=== PATIENT | male | born 1935 | race Caucasian/White ===

== ENCOUNTER → 2020-07-21 13:43 | Outpatient (CLI) | payer MEDICARE, SELFPAY ==
--- NOTE | ~2020-07-21 | XR_ITS ---
XR clavicle LT 07/21/2020 14:00 Indication: Left clavicle pain Procedure: 2 views left clavicle Comparison: No prior studies for comparison. Findings: No fracture or traumatic malalignment. There are mild degenerative changes of the acromiocl avicular joint. Normal mineralization. No significant soft tissue abnormality. Impression: 1: Mild degenerative change of the acromioclavicular joint. Reviewed, dictated and finalized at location A. TIVE TECHNOLOGIST Impression: 1: Mild degenerative change of the acromioclavicular joint.
== END ==
PROVIDERS: PCP Internal Medicine; Visit Provider Internal Medicine
DX: M79.89 Other specified soft tissue disorders (principal)
CPT/HCPCS: 73000

== ENCOUNTER → 2020-07-23 13:46 | Outpatient (CLI) | payer MEDICARE, SELFPAY ==
--- NOTE | ~2020-07-23 | US_ITS ---
EXAMINATION: US soft tissue head and neck EXAM DATE: 07/23/2020 14:06 INDICATION: Left supraclavicular lump for 3 months, no pain. TECHNIQUE: Multiple grayscale and Doppler images of the symptomatic left supraclavicular region were obtained (by a technologist who performed the scan) and subsequently reviewed. Correlation is made t o left clavicular x-ray 07/21/2020. FINDINGS: Scanning in the left supraclavicular area of concern demonstrates ill-defined heterogeneous region of soft tissue echogenicity, difficult to measure due to ill-defined margins. This appears to be along the musculature. No discrete enlarged lymph node identified. IMPRESSION: Nonspecific left supraclavicular ill-defined masslike region; could be malignancy, acute or chronic inflammatory process. Recommend CT neck with contrast for further characterization. Patient was instructed to follow-up these results with his ordering physician. Reviewed, dictated and finalized at location B. ER BOOTS AND SHOES REPAIRER IMPRESSION: Nonspecific left supraclavicular ill-defined masslike region; could be malignancy, acute or chronic inflammatory process. Recommend CT neck with c ontrast for further characterization. Patient was instructed to follow-up these results with his ordering physician.
== END ==
PROVIDERS: PCP Internal Medicine; Visit Provider Internal Medicine
DX: M79.89 Other specified soft tissue disorders (principal)
CPT/HCPCS: 76536

== ENCOUNTER 2020-08-04 07:46 | Outpatient (CLI) | payer MEDICARE, SELFPAY ==
--- NOTE | ~2020-08-04 | CT_ITS ---
EXAMINATION: CT soft tissue neck w con EXAM DATE: 08/04/2020 08:23 INDICATION: M79.89 - Other specified soft tissue disorders . Palpable mass left side upper chest lorri ed with BB, has noticed it for 2 months. TECHNIQUE: Spiral CT of the neck was performed following intravenous injection of 75 mL Omnipaque 350 . Axial, coronal and sagittal images were reviewed. The dose-length product (DLP) for this examinat ion was 576.60 mGy-cm. The exposure was tailored according to patient size (auto mA exposure control ), and iterative reconstruction (ASIR) was used as additional dose reduction technique. There is no prior study for comparison. FINDINGS: There is soft tissue density masslike region anterior to the left clavicle head, appears to be both superficial and deep to a fascial plane, involving the insertion of the left pectoralis at t he clavicular head. Region measures about 4 cm in diameter by 1.5 cm in thickness. It appears slightl y hyperdense to the other muscle in the region, and has ill-defined margins. Differential diagnosis i ncludes sarcoma, hematoma, melanoma. Histologic correlation indicated. There are left-sided internal jugular chain, submandibular, supraclavicular lymph nodes which are wit hin normal size limits, but some have somewhat rounded shape largest in the supraclavicular region me asuring 8 x 9 mm. Can't exclude early metastatic involvement. No superior mediastinal lymphadenopathy . There is right hilar lymph node measuring 1.9 x 1.1 cm, mildly enlarged. The thyroid gland is unremarkable. The submandibular and parotid glands are symmetric. The supe rior mediastinum is unremarkable. The airway is unremarkable. Parapharyngeal and pre-glottic fat planes are preserved. The opacified vasculature is patent. Patient has had bilateral ocular lens surgery. Visualized sinuses and mastoid air cells are well aerated. Mild to moderate emphysema. There is some dependent atelectasis. Scattered pleural plaques with calci fication, may indicate history of prior asbestos exposure. Patient may have mild asbestosis given the prominent interlobular septa. There are no osteoblastic or osteolytic lesions identified. There is mild to moderate cervical spondylosis. IMPRESSION: 1. Soft tissue mass anterior to left clavicular head, suspicious for malignancy or hematoma. Recomme nd histologic correlation. Would be amenable to ultrasound-guided biopsy. 2. Round morphology but normal sized left-sided supraclavicular, internal jugular, submandibular lym ph nodes. Mildly enlarged right hilar lymph node. Pending biopsy results, a PET/CT might be indicated . 3. Stigmata of prior asbestos exposure. Possible mild asbestosis. Reviewed, dictated and finalized at location A. UNITY ENGAGEMENT LEADER IMPRESSION: 1. Soft tissue mass anterior to left clavicular head, suspicious for malignanc y or hematoma. Recommend histologic correlation. Would be amenable to ultrasoun d-guided biopsy. 2. Round morphology but normal sized left-sided supraclavicular, internal jugu lar, submandibular lymph nodes. Mildly enlarged right hilar lymph node. Pending biopsy results, a PET/CT might be indicated. 3. Stigmata of prior asbestos exposure. Possible mild asbestosis.
[2020-08-04 08:14] LABS: Estimated Glomerular Filt Rate > 60
== END 2020-08-04 07:47 | disposition home or self-care (01) ==
PROVIDERS: PCP Internal Medicine; Visit Provider Internal Medicine
DX: R22.1 Localized swelling, mass and lump, neck (principal); R59.0 Localized enlarged lymph nodes; R91.8 Other nonspecific abnormal finding of lung field
CPT/HCPCS: 70491; Q9967

== ENCOUNTER 2020-08-13 09:11 | Outpatient (CLI) | payer MEDICARE, SELFPAY ==
--- NOTE | ~2020-08-13 | US_ITS ---
EXAMINATION: US biopsy st neck thorax DATE: 08/13/2020 09:53 INDICATION: Left supraclavicular mass. TECHNIQUE: The procedure including the risks, benefits, and alternatives was discussed with the patie nt. Risks discussed included bleeding and infection. The patient understood the risks and agreed to p roceed. The skin overlying the left supraclavicular region was prepped and draped in usual sterile fa shion. Anesthetic was administered with 1% lidocaine subcutaneously. An 18 gauge core biopsy needle was then used to obtain 3 core biopsy specimens under continuous sonographic guidance. The entry sit e was cleaned and dressed. There were no immediate complications. FINDINGS: Ultrasound images demonstrate the needle in an ill-defined mixed hypoechoic and hyperechoic mass in left supraclavicular region. IMPRESSION: 1. Ultrasound-guided core needle biopsy of a left supraclavicular mass. Reviewed, dictated and finalized at location A. ERTY FIELD INSPECTOR
== END 2020-08-13 09:12 | disposition home or self-care (01) ==
PROVIDERS: PCP Internal Medicine; Visit Provider Internal Medicine
DX: M79.89 Other specified soft tissue disorders (principal)
CPT/HCPCS: 20206; 76942; 88305; 88342; 88365

== ENCOUNTER 2022-10-13 18:19 | Emergency (ER) | payer MEDICARE, SELFPAY ==
--- NOTE | ~2022-10-13 | CT_ITS ---
EXAMINATION: CT abdomen pelvis w con DATE: 10/13/2022 21:24 INDICATION: periumbilical pain X4 days TECHNIQUE: Computed tomography (CT) of the abdomen and pelvis was performed with 100 mL Omnipaque-350 intravenous contrast. Automated exposure control and iterative reconstruction technique were employe d. The dose-length product was 694.33 mGy-cm. COMPARISON: 03/02/2017. FINDINGS: Lower thorax: Extensive pleural calcification and nodularity as can be seen with asbestos related ple ural disease. Bilateral lower lung bronchiectasis worse on the right. Basilar atelectasis/scarring. C oronary artery mitral and aortic calcifications. Liver: Subcentimeter right lobe hypodensity, likely small cyst or hemangioma. Biliary/Gallbladder: Gallbladder is normal. No bile duct dilation. Pancreas: No mass or duct dilation. Spleen: Normal. Adrenals:Small left adrenal myelolipoma. Kidneys: No mass, stone, or hydronephrosis. Mild bilateral perinephric stranding. Right upper pole hy podensities, too small to characterize but most likely represent cysts. GI tract: Mild distal esophageal and gastric wall edema. No small or large bowel dilation. Appendix n ot visualized. Diverticulosis without diverticulitis. Mesentery/Peritoneum: No ascites, mass, or free air. Retroperitoneum: No mass. Atherosclerotic abdominal aortic and/or arterial calcifications. Pelvis: Partially distended bladder with wall thickening and inflammatory change. Soft Tissues: Normal appearing umbilical region. Small fat-containing uncomplicated bilateral inguina l hernias. Bones: No acute osseous finding. IMPRESSION: Esophagitis/gastritis. Bladder wall thickening/inflammation may be secondary to outlet compromise or cystitis. Additional chronic and incidental findings detailed above. Reviewed, dictated and finalized at location K. IMPRESSION: Esophagitis/gastritis. Bladder wall thickening/inflammation may be secondary to outlet compromise or cystitis. Additional chronic and incidental findings deta iled above.
[2022-10-13 18:32] VITALS: BP 168/81; PULSE 91; RESP 16; TEMP 36.8; O2SAT 98
[2022-10-13 19:04] LABS: Basophils Absolute Auto 0.1 K/mm3 (0.0-0.1); Basophils Percent Auto 0.6 % (0.2-1.2); Eosinophils Absolute Auto 0.4 K/mm3 (0-0.3); Eosinophils Percent Auto 3.8 % (0-4.4); Hematocrit 42.6 % (42.0-52.0); Hemoglobin 14.1 g/dL (14.0-18.0); Immature Granulocyte Absolute 0.02 K/mm3 (0.00-0.031); Immature Granulocyte Percent A 0.2 % (0-0.5); Lymphocytes Percent Auto 29.7 % (18.3-44.2); Mean Corpuscular HGB Conc 33.1 g/dl (32-36); Mean Corpuscular Hemoglobin 30.1 pg (26-34); Monocytes Absolute Auto 0.7 K/mm3 (0.1-0.6); Monocytes Percent Auto 7.3 % (2.6-8.5); Neutrophils Absolute Auto 5.5 K/mm3 (1.3-6.7); Neutrophils Percent Auto 58.4 % (45.5-73.1); Platelet Count Result 294 k/mm3 (150-375); Red Blood Count 4.68 M/mm3 (4.6-6.20); Red Cell Distribution Width 14.6 % (11.5-14.5); White Blood Count 9.4 K/mm3 (4.5-10.0)
[2022-10-13 19:11] LABS: Alanine Aminotransferase 22 U/L (6-50); Albumin Level 4.7 g/dL (3.5-5.1); Alkaline Phosphatase 71 U/L (38-126); Anion Gap 8 mmol/L (8-16); Aspartate Amino Transferase 25 U/L (17-59); Bilirubin,Total 0.7 mg/dL (0.2-1.3); Blood Urea Nitrogen 22 mg/dL (9-20); Calcium 9.5 mg/dL (8.4-10.2); Carbon Dioxide 25 mmol/L (22-30); Chloride 100 mmol/L (98-107); Estimated CRCL calculation 57 ml/min; Estimated Glomerular Filt Rate > 60; Glucose 144 mg/dL (65-110); Lipase 63 U/L (23-300); Potassium 4.3 mmol/L (3.4-5.0); Sodium 133 mmol/L (137-145)
[2022-10-13 19:34] VITALS: O2SAT 97
[2022-10-13 19:35] VITALS: BP 166/94; PULSE 83; RESP 18; O2SAT 100
[2022-10-13 19:46] LABS: Appearance Urine Clear (Clear); Bilirubin Urine Negative (Negative); Blood Urine Negative (Negative); Color Urine Yellow (Yellow); Glucose Urine UA Negative (Negative); Ketones Urine Negative (Negative); Leukocyte Esterase Ur Negative LEU/UL (Negative); Nitrate Urine Negative (Negative); Protein Urine Negative (Negative); Specific Grav Ur 1.021 (1.001-1.035); Urobilinogen Urine 0.2 mg/dL (<2.0)
[2022-10-13 19:51] LABS: Add Urine Microscopic? NO
--- NOTE | 2022-10-13 20:57 | ED.ABDPAIN ---
HPI - Abdominal Pain General Chief Complaint: Abdominal Pain <RIDGE White Last Filed: 10/14/22 02:33> Stated Complaint: Pain in abd around belly button, started 4 days <RIDGE White Last Filed: 10/14/22 02:33> Time Seen by Provider: 10/13/22 19:31 <RIDGE White Last Filed: 10/14/22 02:33> Source: patient <RIDGE White Last Filed: 10/14/22 02:33> Mode of arrival: ambulatory <RIDGE White Last Filed: 10/14/22 02:33> Limitations: no limitations <RIDGE White Last Filed: 10/14/22 02:33> History of Present Illness HPI narrative: Patient is an 87 y/o male who presents the ED with report of periumbilical abdominal pain. Patient reports having pain for the last 4 days. He states the pain was somewhat intermittent at first, but has become more intense and constant. He has been taking Tylenol for the pain with minimal relief. Denies any other aggravating or alleviating factors of pain. He denies any nausea, vomiting, diarrhea, constipation, urinary symptoms, fever, recent cough or cold symptoms. His last bowel movement was yesterday. He states he typically has a bowel movement every other day. <RIDGE White Last Filed: 10/14/22 02:33> Related Data Allergies/Adverse Reactions: Allergies Allergy/AdvReac Type Severity Reaction Status Date / Time amoxicillin Allergy Unknown SWELLING Verified 10/13/22 18:20 ciprofloxacin Allergy Unknown Upset Verified 10/13/22 18:20 stomach <RIDGE White Last Filed: 10/14/22 02:33> Review of Systems Review of Systems: CONSTITUTIONAL: Denies fever, chills, or sweats. ENT: Denies rhinorrhea, congestion, sore throat. CARDIOVASCULAR: Denies chest pain. RESPIRATORY: Denies cough or dyspnea. GASTROINTESTINAL: See HPI. GENITOURINARY: Denies dysuria or hematuria. <Valorie Dominguez PA-C - Last Filed: 10/14/22 02:33> All systems reviewed & are unremarkable except as noted in HPI and below <Valorie Dominguez PA-C - Last Filed: 10/14/22 02:33> [facility] Past Medical History Medical History: Medical History Atherosclerotic heart disease of [place] coronary artery with angina pectoris Chronic kidney disease, stage III (moderate) SURESH (dyspnea on exertion) Dyslipidemia Essential hypertension H/O prostate cancer Hypothyroidism, unspecified Sleep disturbance Type 2 diabetes mellitus without complications <Valorie Dominguez PA-C - Last Filed: 10/14/22 02:33> Surgical History Surgical History: Surgical History H/O hernia repair History of appendectomy <Valorie Dominguez PA-C - Last Filed: 10/14/22 02:33> Family History Family History: Family History Mother Family history of transient ischemic attacks, Onset Age: 81 Family history of diabetes mellitus in first degree relative Patient's mother is Diabetes mellitus Cerebrovascular accident Sibling Family history of Parkinson's disease Patient's sister is in good health Father Family history of lung cancer Patient's father is Other Hypertension <Valorie Dominguez PA-C - Last Filed: 10/14/22 02:33> Social History Social History: Social History Smoking status: Never smoker Smoking end date: 08/01/1959 Alcohol intake: never <Valorie Dominguez PA-C - Last Filed: 10/14/22 02:33> Exam Narrative: GENERAL: Elderly, well-nourished, non-toxic, in no acute distress. HEAD: Normocephalic, atraumatic. NECK: Supple. No adenopathy, no masses. RESPIRATORY: Airway patent, respirations nonlabored. Clear to auscultation bilaterally, no rales, rhonchi, wheezing. CARDIOVASCULA
[2022-10-13] MEDS: SODIUM CHLORIDE 0.9% IV 1,000 ML 999 ML IV CONT (21:07)
[2022-10-13] MEDS: KETOROLAC 15 MG/ML VIAL (*BKC) IV PUSH (23:02)
[2022-10-13] MEDS: BELLADONNA ALK/PHENOB ELIX 10 ML, MAG HYDROX/ALUMINUM HYD/SIMETH 30 ML, LIDOCAINE HCL 2... PO (23:02)
--- NOTE | 2022-10-13 23:24 | PC.NURSE ---
Assumed care of this pt at this time. Report from WILL Morales.
[2022-10-13 23:25] VITALS: BP 158/86; PULSE 75; RESP 16; O2SAT 95
== END 2022-10-14 00:35 | disposition home or self-care (01) ==
PROVIDERS: Emergency Medicine; Emergency Provider Physician Assistant; PCP Internal Medicine
DX: K29.00 Acute gastritis without bleeding (principal); R10.33 Periumbilical pain; I25.10 Atherosclerotic heart disease of native coronary artery without angina pectoris; E11.22 Type 2 diabetes mellitus with diabetic chronic kidney disease; I12.9 Hypertensive chronic kidney disease with stage 1 through stage 4 chronic kidney disease, or unspecified chronic kidney disease; N18.30 Chronic kidney disease, stage 3 unspecified; E03.9 Hypothyroidism, unspecified; Z85.46 Personal history of malignant neoplasm of prostate
CPT/HCPCS: 36415; 74177; 80053; 81003; 83690; 85025; 96365; 96375; 99284; A9270; J0131; J1885; J7030; Q9967

== ENCOUNTER 2023-05-10 09:00 | Outpatient (CLI) | payer MEDICARE, SELFPAY ==
[2023-05-10 10:04] LABS: Alanine Aminotransferase 24 U/L (6-50); Albumin Level 4.4 g/dL (3.5-5.1); Alkaline Phosphatase 77 U/L (38-126); Anion Gap 10 mmol/L (8-16); Aspartate Amino Transferase 29 U/L (17-59); Bilirubin,Total 1.1 mg/dL (0.2-1.3); Blood Urea Nitrogen 20 mg/dL (9-20); Calcium 9.2 mg/dL (8.4-10.2); Carbon Dioxide 27 mmol/L (22-30); Chloride 101 mmol/L (98-107); Cholesterol 242 mg/dL (0-200); Estimated Glomerular Filt Rate > 60; Glucose 127 mg/dL (65-110); HDL Direct 34 mg/dL; Potassium 4.1 mmol/L (3.4-5.0); Sodium 138 mmol/L (137-145); Triglycerides 224 mg/dL (<150)
[2023-05-10 10:07] LABS: Hemoglobin A1C 6.2 % (<5.7)
[2023-05-10 10:15] LABS: LDL Cholesterol Direct 150 mg/dL
[2023-05-10 10:36] LABS: Microalbumin Urine Random 43.4 mg/L (0-16.7)
[2023-05-10 10:53] LABS: Creatinine Urine 367.2 mg/dL; MALB Creatinine Ratio 11.8 mg/g (0-30)
== END 2023-05-10 09:01 | disposition home or self-care (01) ==
LOC: ANHLAB 09:02
PROVIDERS: PCP Family Medicine; Visit Provider Nurse Practitioner Family
DX: E11.9 Type 2 diabetes mellitus without complications (principal); I12.9 Hypertensive chronic kidney disease with stage 1 through stage 4 chronic kidney disease, or unspecified chronic kidney disease; N18.2 Chronic kidney disease, stage 2 (mild); E03.9 Hypothyroidism, unspecified
CPT/HCPCS: 36415; 80053; 80061; 82043; 83036; 84443

== ENCOUNTER 2023-11-09 09:10 | Outpatient (CLI) | payer MEDICARE, SELFPAY ==
[2023-11-09 09:56] LABS: Alanine Aminotransferase 16 U/L (6-50); Albumin Level 4.7 g/dL (3.5-5.1); Alkaline Phosphatase 66 U/L (38-126); Anion Gap 10 mmol/L (4-12); Aspartate Amino Transferase 23 U/L (17-59); Bilirubin,Total 1.2 mg/dL (0.2-1.3); Blood Urea Nitrogen 26 mg/dL (9-20); Calcium 9.8 mg/dL (8.4-10.2); Carbon Dioxide 26 mmol/L (22-30); Chloride 104 mmol/L (98-107); Cholesterol 138 mg/dL (0-200); Estimated Glomerular Filt Rate > 60; Glucose 135 mg/dL (65-110); HDL Direct 38 mg/dL; Potassium 4.4 mmol/L (3.4-5.0); Sodium 140 mmol/L (137-145); Triglycerides 119 mg/dL (<150)
[2023-11-09 10:09] LABS: LDL Cholesterol Direct 77 mg/dL
[2023-11-09 10:29] LABS: Hemoglobin A1C 6.4 % (<5.7)
== END 2023-11-09 09:11 | disposition home or self-care (01) ==
LOC: ANHLAB 09:16
PROVIDERS: PCP Family Medicine; Visit Provider Nurse Practitioner
DX: E78.5 Hyperlipidemia, unspecified (principal); E11.9 Type 2 diabetes mellitus without complications; E03.9 Hypothyroidism, unspecified
CPT/HCPCS: 36415; 80053; 80061; 83036; 84443

== ENCOUNTER 2024-05-22 09:56 | Outpatient (CLI) | payer MEDICARE, SELFPAY ==
[2024-05-22 11:21] LABS: Alanine Aminotransferase 14 U/L (6-50); Albumin Level 4.5 g/dL (3.5-5.1); Alkaline Phosphatase 59 U/L (38-126); Anion Gap 10 mmol/L (4-12); Aspartate Amino Transferase 24 U/L (17-59); Bilirubin,Total 1.4 mg/dL (0.2-1.3); Blood Urea Nitrogen 26 mg/dL (9-20); Calcium 9.3 mg/dL (8.4-10.2); Carbon Dioxide 28 mmol/L (22-30); Chloride 101 mmol/L (98-107); Cholesterol 135 mg/dL (0-200); Estimated Glomerular Filt Rate > 60; Glucose 122 mg/dL (65-110); HDL Direct 42 mg/dL; Sodium 139 mmol/L (137-145); Triglycerides 122 mg/dL (<150)
[2024-05-22 11:25] LABS: LDL Cholesterol Direct 57 mg/dL
[2024-05-22 12:09] LABS: Hemoglobin A1C 6.6 % (<5.7)
[2024-05-22 12:55] LABS: Creatinine Urine 69.3 mg/dL
[2024-05-22 15:25] LABS: MALB Creatinine Ratio < 8.7 mg/g (0-30); Microalbumin Urine Random < 6.0 mg/L (0-16.7)
== END 2024-05-22 09:57 | disposition home or self-care (01) ==
LOC: ANHLAB 10:00
PROVIDERS: PCP Nurse Practitioner; Visit Provider Nurse Practitioner
DX: E11.9 Type 2 diabetes mellitus without complications (principal); E78.5 Hyperlipidemia, unspecified
CPT/HCPCS: 36415; 80053; 80061; 82043; 83036

== ENCOUNTER 2024-10-30 09:44 | Outpatient (CLI) | payer MEDICARE, SELFPAY ==
[2024-10-30 10:07] LABS: Add Urine Microscopic? NO; Appearance Urine Clear (Clear); Bilirubin Urine Negative (Negative); Blood Urine Negative (Negative); Color Urine Yellow (Yellow); Glucose Urine UA Negative (Negative); Ketones Urine Negative (Negative); Leukocyte Esterase Ur Negative LEU/UL (Negative); Nitrate Urine Negative (Negative); Protein Urine Negative (Negative); Specific Grav Ur 1.012 (1.001-1.035)
--- OUTSIDE RECORDS SUMMARY | 2024-10-30 10:14 | XMS_ITS | Clinical Summary ---
Author Organization [facility] Address [address] [place] [place] [address] Care Team Providers Care Draw Press Operator Name Role Phone Unavailable Primary Care Provider Unavailabl e Source Comments [facility],non-owned Affiliates and Associated Physician Practices is amultiple site organization consisting of ambulatory clinics and hospital sitesin [place], [place], [place] and [place]. This disclosure is being madepursuant to the Care Everywhere program and may not contain all information available regarding this patient. Last updated 18.[facility] Social History Tobacco Use Types Packs/Day Years Used Date Smoking Tobacco: Never Assessed Sex and Gender Information Value Date Recorded Sex Assigned at Not on file Gender Identity Not on file Sexual Orientation Not on file Plan of Treatment Health Maintenance Due Date Last Done Comments DTAP/TDAP/TD VACCINES (1 - Tdap) 1955 PNEUMOCOCCAL VACCINE 50+ (1 of 1 - PCV) 1986 ZOSTER VACCINE (1 of 2) 1986 Respiratory Syncytial Virus (RSV) Vaccine Pt: or over 60 yrs (1 - 1-dose 75+ series) 2011 COVID-19 VACCINE (2023-2 5 season) 2024 INFLUENZA VACCINE (#1) 2024 DEPRESSION SCREENING 08/01/2024 MEDICARE AWV CALENDAR YEAR 2024 HEPATITIS B VACCINE Aged Out No longe r eligible based on patient's age to complete this topic HIB VACCINE Aged Out No longer eligi ble based on patient's age to complete this topic HPV VACCINE Aged Out No longer eligi ble based on patient's age to complete this topic MENINGOCOCCAL (Group B) VACC INE SHARED DECISION-MAKING Aged Out No longer eligibl e based on patient's age to complete this topic MENINGOCOCCAL GROUPS A/C/Y/W VACCINE Aged Out No longer eligible b ased on patient's age to complete this topic
--- OUTSIDE RECORDS SUMMARY | 2024-10-30 10:14 | XMS_ITS | Continuity of Care Document ---
Author Organization [facility] Address [address] [place] [address] Phone Care Team Providers Care Payroll Associate Name Role Phone Dick Huerta MD Unavailable Unavailable Procedures Procedure Date Eye Exam, New Patient IOLMaster Advance Directives Directive Yes / No Effective Date File Name No Information Encounters Encounter Description Practice Location Reason(s) For Visit Diagnoses Date Provider Providers Copied on Encounter [facility], [address], [place], [place], [id number], [place] tel:[phone] [facility] No Information Bradley Jennings. [facility] [place], [place], [id number] , [place]. tel:[phone] Referring Provider: Junior Souza, [address], [place], [address]. tel:[phone] Family History Family Member Type Diagnosis Age At Onset No Information Payers Payer name Insurance type Covered republican ID Authoriza tion(s) [place] [id number] Social History Type Description Quantity Date Captured [...]
--- OUTSIDE RECORDS SUMMARY | 2024-10-30 10:14 | XMS_ITS | Encounter Summary ---
Author Organization [facility] Address [address] [facility] [address] Care Team Providers Care Adobe Flex Developer Name Role Phone Unavailable Primary Care Provider Unavailabl e Encounter Details Date Type Department Care Team (Late st Contact Info) Description 08/15/2020 Lab Requisition [facility] Care Pathology Lab [address] [place] [address] Francisco Valiente MD [address] [place] [id number] Illness, unspecified Social History Tobacco Use Types Packs/Day Years Used Date Smoking Tobacco: Never Assessed Sex and Gender Information Value Date Recorded Sex Assigned at Not on file Gender Identity Not on file Sexual Orientation Not on file documented as of this encounter Plan of Treatment Not on file documented as of this encounter Procedures Procedure Name Priority Date/Time Associated Diagnosis Comments PATHOLOGY TISSUE Routine 08/13/2020 9:53 AM ATMOSPHERIC PHYSICIST Illness, unspecified documented in this encounter Results * PATHOLOGY TISSUE (08/13/2020 9:53 AM ATMOSPHERIC PHYSICIST) Case Report Surgical Pathology Report Case: [id number] Authorizing Provider: Francisco Valiente MD Collected: 08/13/2020 09:53 AM Ordering Location: [facility] Received: 08/15/2020 08:09 AM Pathologist: Mainor Wilde MD Specimen: Lymph Node Biopsy 08/18/2020 2:06 PM ATMOSPHERIC PHYSICIST [facility] Final Diagnosis Left supraclavicular mass, ultrasound-guided core biopsy: - Scant fragments of fibrous tissue with polytypic plasma cells - See description 08/18/2020 2:06 PM ATMOSPHERIC PHYSICIST [facility] Microscopic Description and Comment H&E sections of the left supraclavicular mass biopsy specimen reveals scant fragments of fibrous tissue with plasma cells, and scattered lymphocytes. No definitive monomorphic populations are seen. No Hodgkin/Duncan-Sternber g-like (HRS-like) cells, increased inflammatory cells, mitoses, necrosis, apoptotic bodies, or granulomas are identified. Immunohistochemical stains are performed on block A1, with appropriate controls, and demonstrate the following: CD138: highlights focal clusters of plasma cells [place] and lambda LAURO: shows no evidence of a clonally restricted population CD20: highlights scattered B-cells CD3: highlights scattered T-cells 08/18/2020 2:06 PM [facility] Clinical History The patient is an 85 year-old man with a 4 cm supraclavicular mass. 08/18/2020 2:06 PM [facility] Materials Received Received are 6 slide(s) and 1 block labeled [id number] along with a copy of the outside pathology report[place] [address] All original materials are returned to the referring institution, along with a copy of our final report. 08/18/2020 2:06 PM [facility] Disclaimer The performance characteristics of all immunohistochemical and indirect immunofluorescence stains (if any) cited in this report were determined by the Histopathology Laboratory of [facility]. Some of these tests were developed by our own laboratory and have not been cleared or approved by the US Food and Drug Administration. The FDA does not require this test to go through premarket FDA review. These tests are used for clinical purposes. They should not be regarded as investigational or for research. This laboratory is certified under the Clinical Laboratory Improvement Amendments (CLIA) as qualified to perform high complexity clinical laboratory testing. This case has been personally reviewed and interpreted by the attending (teaching) pathologist. 08/18/2020 2:06 PM [facility] Embedded Images 08/18/2020 2:06 PM [facility] Pathology/Cytolo gy BIOPSY OF LYMPH NODE / Unknown 08/13/2020 9:53 AM ATMOSPHERIC PHYSICIST 08/15/2020 8:09 AM ATMOSPHERIC PHYSICIST Francisco Valiente MD LAB - PATHOLOGY/CYTO LOGY ORDERABLES [facility] PATHOLOGY LAB [address] [place], [place] [id number] [place] [address] documented in this encounter Visit Diagnoses Diagnosis Illness, unspecified documented in this encounter
[2024-10-30 10:25] LABS: Alanine Aminotransferase 16 U/L (6-50); Albumin Level 4.4 g/dL (3.5-5.1); Alkaline Phosphatase 63 U/L (38-126); Anion Gap 12 mmol/L (4-12); Aspartate Amino Transferase 19 U/L (17-59); Bilirubin,Total 0.8 mg/dL (0.2-1.3); Blood Urea Nitrogen 20 mg/dL (9-20); Calcium 9.4 mg/dL (8.4-10.2); Carbon Dioxide 27 mmol/L (22-30); Chloride 101 mmol/L (98-107); Cholesterol 123 mg/dL (0-200); Estimated Glomerular Filt Rate > 60; Glucose 129 mg/dL (65-110); HDL Direct 39 mg/dL; Potassium 4.5 mmol/L (3.4-5.0); Sodium 140 mmol/L (137-145); Triglycerides 132 mg/dL (<150)
--- OUTSIDE RECORDS SUMMARY | 2024-10-30 10:32 | XMS_ITS | Continuity of Care Document ---
Author Organization [facility] Address [address] [place] [address] Phone Care Team Providers Care Event Marketing Assistant Name Role Phone Dick Huerta MD Unavailable Unavailable Procedures Procedure Date Eye Exam, New Patient IOLMaster Advance Directives Directive Yes / No Effective Date File Name No Information Encounters Encounter Description Practice Location Reason(s) For Visit Diagnoses Date Provider Providers Copied on Encounter [facility], [address], [place], [place], [id number], [place] tel:[phone] [facility] No Information Bradley Jennings. [facility] [place], [place], [id number] , [place]. tel:[phone] Referring Provider: Junior Souza, [address], [place], [address]. tel:[phone] Family History Family Member Type Diagnosis Age At Onset No Information Payers Payer name Insurance type Covered alliance party ID Authoriza tion(s) [place] [id number] Social History Type Description Quantity Date Captured [...]
[2024-10-30 10:36] LABS: LDL Cholesterol Direct 54 mg/dL
[2024-10-30 10:37] LABS: Hemoglobin A1C 6.4 % (<5.7)
[2024-10-30 10:53] LABS: Thyroid Stimulating Hormone 0.709 uIU/mL (0.465-4.680)
== END 2024-10-30 09:45 | disposition home or self-care (01) ==
PROVIDERS: PCP Nurse Practitioner; Visit Provider Nurse Practitioner
DX: E78.5 Hyperlipidemia, unspecified (principal); E11.9 Type 2 diabetes mellitus without complications; E03.9 Hypothyroidism, unspecified; R30.0 Dysuria
CPT/HCPCS: 36415; 80053; 80061; 81003; 83036; 84443

== ENCOUNTER 2024-11-16 10:05 | Emergency (ER) | payer MEDICARE, SELFPAY ==
[2024-11-16] VITALS (8 sets, daily range): BP systolic 132–157; BP diastolic 73–83; PULSE 76–87; RESP 11–20; TEMP 36.6; O2SAT 97–99
--- NOTE | ~2024-11-16 | CT_ITS ---
CLINICAL INDICATION: Periumbilical abdominal pain COMPARISON: 10/13/2022. TECHNIQUE: Multiple contiguous axial images of the abdomen and pelvis were performed following the ad ministration of with 100 mL Omnipaque-350 intravenous contrast The dose-length product (DLP) was 847.67 mGy-cm. Automated exposure control and iterative reconstruction technique were employed. FINDINGS/OBSERVATIONS: Visualized lower thorax: Calcified pleural plaques are identified bilaterally with trace compressive atelectasis. The remainder of the bilateral lung bases are clear. The heart is of normal size, without pericardial effusion. Small hiatal hernia is present. Liver: The liver demonstrates homogeneous enhancement and is not enlarged. Gallbladder and biliary system: The gallbladder is only minimally distended, and otherwise unremarkable. Pancreas: The pancreas enhances homogeneously without ductal dilatation. Spleen: The spleen enhances homogeneously and is not enlarged. Kidneys: The bilateral kidneys enhance symmetrically without hydronephrosis or renal calculi. Adrenal glands: Unremarkable. Gastrointestinal tract: Colonic diverticulosis without surrounding inflammatory change. Fecal stasis within the colon. Appendix: The appendix is not definitively visualized. However, no pericecal inflammatory change is identified suggest the presence of acute appendicitis. Vasculature: Densely calcified atherosclerotic disease Lymph nodes: No pathologically enlarged or morphologically suspicious lymph nodes within the retroperitoneum or at the root of the mesentery. Pelvic structures: The bladder is only minimally distended, and otherwise unremarkable. The prostate gland is not enlarged. Body wall and musculoskeletal: Age appropriate degenerative disease within the lumbosacral spine. IMPRESSION: No acute intra-abdominal pathology, as detailed above. Reviewed, dictated and finalized at location A.
--- OUTSIDE RECORDS SUMMARY | 2024-11-16 10:16 | XMS_ITS | Encounter Summary ---
Author Organization [facility] Address [address] [place] [place] [address] Care Team Providers Care Shirt Turner Name Role Phone Unavailable Primary Care Provider Unavailabl e Encounter Details Date Type Department Care Team (Late st Contact Info) Description 08/15/2020 Lab Requisition [facility] Pathology Lab [address] [place] [address] Francisco Valiente MD [address] [place] [id number] Illness, unspecified Social History Tobacco Use Types Packs/Day Years Used Date Smoking Tobacco: Never Assessed Sex and Gender Information Value Date Recorded Sex Assigned at Not on file Legal Sex 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 Gender Identity Not on file Sexual Orientation Not on file documented as of this encounter Plan of Treatment Not on file documented as of this encounter Procedures Procedure Name Priority Date/Time Associated Diagnosis Comments PATHOLOGY TISSUE Routine 08/13/2020 9:53 AM ESCALATOR CONSTRUCTOR Illness, unspecified documented in this encounter Results * PATHOLOGY TISSUE (08/13/2020 9:53 AM ESCALATOR CONSTRUCTOR) Case Report Surgical Pathology Report Case: [id number] Authorizing Provider: Francisco Valiente MD Collected: 08/13/2020 09:53 AM Ordering Location: [facility] Care Pathology Lab Received: 08/15/2020 08:09 AM Pathologist: Mainor Wilde MD Specimen: Lymph Node Biopsy 08/18/2020 2:06 PM ESCALATOR CONSTRUCTOR [facility] PATHOLOGY LAB Final Diagnosis Left supraclavicular mass, ultrasound-guided core biopsy: - Scant fragments of fibrous tissue with polytypic plasma cells - See description 08/18/2020 2:06 PM ESCALATOR CONSTRUCTOR [facility] PATHOLOGY LAB Microscopic Description and Comment [...] CD138: highlights focal clusters of plasma cells [place] and lambda LAURO: shows no evidence of a clonally restricted population CD20: highlights scattered B-cells CD3: highlights scattered T-cells 08/18/2020 2:06 PM [facility] PATHOLOGY LAB Clinical History The patient is an 85 year-old man with a 4 cm supraclavicular mass. 08/18/2020 2:06 PM [facility] PATHOLOGY LAB Materials Received Received are 6 slide(s) and 1 block labeled [id number] along with a copy of the outside pathology report. [place] [address] All original materials are returned to the referring institution, along with a copy of our final report. 08/18/2020 2:06 PM [facility] PATHOLOGY LAB Disclaimer The performance characteristics of all immunohistochemical and indirect immunofluorescence stains (if any) cited in this report were determined by the Histopathology Laboratory of [facility]. Some of these tests were developed by [...] the attending (teaching) pathologist. 08/18/2020 2:06 PM [facility] PATHOLOGY LAB Embedded Images 08/18/2020 2:06 PM [facility] PATHOLOGY LAB Pathology/Cytolo gy BIOPSY OF LYMPH NODE / Unknown 08/13/2020 9:53 AM ESCALATOR CONSTRUCTOR 08/15/2020 8:09 AM ESCALATOR CONSTRUCTOR us Francisco Valiente MD LAB - PATHOLOGY/CYTOLOGY ORDER CHARLES Final Result [facility] PATHOLOGY LAB [address] [phone] documented in this encounter Visit Diagnoses Diagnosis Illness, unspecified documented in this encounter
--- OUTSIDE RECORDS SUMMARY | 2024-11-16 10:16 | XMS_ITS | Clinical Summary ---
Author Organization [facility] Address [address] [place] [address] Care Team Providers Care Plumber Gasfitter Name Role Phone Unavailable Primary Care Provider Unavailabl e Source Comments [facility],non-owned Affiliates and Associated Physician Practices is amultiple site organization consisting of ambulatory clinics and hospital sitesin [place], [place], [place]. This disclosure is being madepursuant to the Care Everywhere program and may not contain all information available regarding this patient. 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 Gender Identity Not on file Sexual Orientation Not on file Plan of Treatment Health Maintenance Due Date Last Done Comments DTAP/TDAP/TD VACCINES (1 - Tdap) 1955 PNEUMOCOCCAL VACCINE 50+ (1 of 1 - PCV) 1986 ZOSTER VACCINE (1 of 2) 1986 Respiratory Syncytial Virus (RSV) Vaccine Pt: or over 60 yrs (1 - 1-dose 75+ series) 2011 COVID-19 VACCINE ( - 2023-2 5 season) 2024 DEPRESSION SCREENING 08/01/2024 MEDICARE AWV CALENDAR YEAR 2024 INFLUENZA VACCINE (Season Ended) 2025 HEPATITIS B VACCINE Aged Out No longe [...] on patient's age to complete this topic Insurance MEDICARE [facility]
--- OUTSIDE RECORDS SUMMARY | 2024-11-16 10:16 | XMS_ITS | Continuity of Care Document ---
Author Organization [facility] Address [address] [place] [address] Phone Care Team Providers Care Analytical Laboratory Technician Name Role Phone Dick Huerta MD Unavailable Unavailable Procedures Procedure Date Eye Exam, New Patient IOLMaster Advance Directives Directive Yes / No Effective Date File Name No Information Encounters Encounter Description Practice Location Reason(s) For Visit Diagnoses Date Provider Providers Copied on Encounter [facility], [address], [place], [place], [id number], [place] tel:[phone] [facility] No Information Bradley Jennings. [facility] [place], [place], [id number] , [place]. tel:[phone] Referring Provider: Junior Souza, [address], [place], [address]. tel:[phone] Family History Family Member Type Diagnosis Age At Onset No Information Payers Payer name Insurance type Covered green party ID Authoriza tion(s) [place] [id number] Social History Type Description Quantity Date Captured [...]
--- OUTSIDE RECORDS SUMMARY | 2024-11-16 11:22 | XMS_ITS | Continuity of Care Document ---
Author Organization [facility] Address [address] [place] [address] Phone Care Team Providers Care Recreation Director Name Role Phone Dick Huerta MD Unavailable Unavailable Procedures Procedure Date Eye Exam, New Patient IOLMaster Advance Directives Directive Yes / No Effective Date File Name No Information Encounters Encounter Description Practice Location Reason(s) For Visit Diagnoses Date Provider Providers Copied on Encounter [facility], [address], [place], [place], [id number], [place] tel:[phone] [facility] No Information Bradley Jennings. [facility] [place], [place], [id number] , [place]. tel:[phone] Referring Provider: Junior Souza, [address], [place], [address]. tel:[phone] Family History Family Member Type Diagnosis Age At Onset No Information Payers Payer name Insurance type Covered green party ID Authoriza tion(s) [place] [id number] Social History Type Description Quantity Date Captured [...]
--- OUTSIDE RECORDS SUMMARY | 2024-11-16 11:22 | XMS_ITS | Encounter Summary ---
Author Organization [facility] Address [address] [place] [address] Care Team Providers Care Marble Worker Name Role Phone Unavailable Primary Care Provider Unavailabl e Encounter Details Date Type Department Care Team (Late st Contact Info) Description 08/15/2020 Lab Requisition [facility] Pathology Lab [address] [place] [address] Francisco Valiente MD [address] [place] [address] Illness, unspecified Social History Tobacco Use Types Packs/Day Years Used Date Smoking Tobacco: Never Assessed Sex and Gender Information Value Date Recorded Sex Assigned at Not on file Legal Sex Male 11:09 AM SHIPPING ORDER CLERK Gender Identity Not on file Sexual Orientation Not on file documented as of this encounter Plan of Treatment Not on file documented as of this encounter Procedures Procedure Name Priority Date/Time Associated Diagnosis Comments PATHOLOGY TISSUE Routine 08/13/2020 9:53 AM SHIPPING ORDER CLERK Illness, unspecified documented in this encounter Results * PATHOLOGY TISSUE (08/13/2020 9:53 AM SHIPPING ORDER CLERK) Case Report Surgical Pathology Report Case: [id number] Authorizing Provider: Francisco Valiente MD Collected: 08/13/2020 09:53 AM Ordering Location: [facility] Care Pathology Lab Received: 08/15/2020 08:09 AM Pathologist: Mainor Wilde MD Specimen: Lymph Node Biopsy 08/18/2020 2:06 PM SHIPPING ORDER CLERK U PATHOLOGY LAB Final Diagnosis Left supraclavicular mass, ultrasound-guided core biopsy: - Scant fragments of fibrous tissue with polytypic plasma cells - See description 08/18/2020 2:06 PM SHIPPING ORDER CLERK U PATHOLOGY LAB Microscopic Description and Comment [...] CD138: highlights focal clusters of plasma cells [place] and lambda LAURO: shows no evidence of a clonally restricted population CD20: highlights scattered B-cells CD3: highlights scattered T-cells 08/18/2020 2:06 PM [facility] PATHOLOGY LAB Clinical History The patient is an 85 year-old man with a 4 cm supraclavicular mass. 08/18/2020 2:06 PM [facility] PATHOLOGY LAB Materials Received Received are 6 slide(s) and 1 block labeled [id number] along with a copy of the outside pathology report. [place] [address] All original materials are returned to the referring institution, along with a copy of our final report. 08/18/2020 2:06 PM [facility] PATHOLOGY LAB Disclaimer The performance characteristics of all immunohistochemical and indirect immunofluorescence stains (if any) cited in this report were determined by the Histopathology Laboratory of [facility]. Some of these tests were developed by [...] the attending (teaching) pathologist. 08/18/2020 2:06 PM [facility] PATHOLOGY LAB Embedded Images 08/18/2020 2:06 PM [facility] PATHOLOGY LAB Pathology/Cytolo gy BIOPSY OF LYMPH NODE / Unknown 08/13/2020 9:53 AM SHIPPING ORDER CLERK 08/15/2020 8:09 AM SHIPPING ORDER CLERK us Francisco Valiente MD LAB - PATHOLOGY/CYTOLOGY ORDER CHALRES Final Result [facility] PATHOLOGY LAB [address] [phone] documented in this encounter Visit Diagnoses Diagnosis Illness, unspecified documented in this encounter
--- OUTSIDE RECORDS SUMMARY | 2024-11-16 11:22 | XMS_ITS | Clinical Summary ---
Author Organization [facility] Address [address] [place] [address] Care Team Providers Care Tank Stave Assembler Name Role Phone Unavailable Primary Care Provider Unavailabl e Source Comments [facility],non-owned Affiliates and Associated Physician Practices is amultiple site organization consisting of ambulatory clinics and hospital sitesin [place], [place] and [place]. This disclosure is being madepursuant to the Care Everywhere program and may not contain all information available regarding this patient. 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
[2024-11-16 11:41] LABS: Basophils Absolute Auto 0.1 K/mm3 (0.0-0.1); Basophils Percent Auto 0.5 % (0.2-1.2); Eosinophils Absolute Auto 0.1 K/mm3 (0-0.3); Eosinophils Percent Auto 1.2 % (0-4.4); Hematocrit 40.7 % (42.0-52.0); Hemoglobin 13.2 g/dL (14.0-18.0); Immature Granulocyte Absolute 0.02 K/mm3 (0.00-0.031); Immature Granulocyte Percent A 0.2 % (0-0.5); Lymphocytes Absolute Auto 2.31 K/mm3 (0.9-3.2); Lymphocytes Percent Auto 20.8 % (18.3-44.2); Mean Corpuscular HGB Conc 32.4 g/dl (32-36); Mean Corpuscular Hemoglobin 30.4 pg (26-34); Mean Corpuscular Volume 93.8 fl (80-100); Mean Platelet Volume 10.4 fl (7.4-10.4); Monocytes Absolute Auto 0.9 K/mm3 (0.1-0.6); Monocytes Percent Auto 8.2 % (2.6-8.5); Neutrophils Absolute Auto 7.7 K/mm3 (1.3-6.7); Neutrophils Percent Auto 69.1 % (45.5-73.1); Platelet Count Result 269 k/mm3 (150-375); Red Blood Count 4.34 M/mm3 (4.6-6.20); Red Cell Distribution Width 14.3 % (11.5-14.5); White Blood Count 11.1 K/mm3 (4.5-10.0)
[2024-11-16 11:56] LABS: Alanine Aminotransferase 17 U/L (6-50); Albumin Level 4.5 g/dL (3.5-5.1); Alkaline Phosphatase 57 U/L (38-126); Anion Gap 11 mmol/L (4-12); Aspartate Amino Transferase 20 U/L (17-59); Bilirubin,Total 0.6 mg/dL (0.2-1.3); Blood Urea Nitrogen 22 mg/dL (9-20); Calcium 9.7 mg/dL (8.4-10.2); Carbon Dioxide 29 mmol/L (22-30); Chloride 96 mmol/L (98-107); Estimated CRCL calculation 53 ml/min; Estimated Glomerular Filt Rate > 60; Glucose 143 mg/dL (65-110); Lipase 66 U/L (23-300); Potassium 4.3 mmol/L (3.4-5.0); Sodium 136 mmol/L (137-145)
--- NOTE | 2024-11-16 12:56 | ED.ABDPAIN ---
HPI - Abdominal Pain General Chief Complaint: Abdominal Pain Stated Complaint: hernia? Time Seen by Provider: 11/16/24 11:01 Source: patient Mode of arrival: ambulatory Limitations: no limitations History of Present Illness HPI narrative: 89-year-old with a history of hypertension, diabetes, hyperlipidemia, hernia repair here with a complains of pain at around no umbilical area. Patient states that he felt a sharp shooting pain while he was getting out of the couch. He thinks his hernia is reoccurring. He denies any nausea, vomiting. Pain started few hours ago. Related Data Allergies Allergy/AdvReac Type Severity Reaction Status Date / Time amoxicillin Allergy Unknown SWELLING Verified 11/16/24 11:21 ciprofloxacin Allergy Unknown Upset Verified 11/16/24 11:21 stomach Review of Systems Review of Systems: All systems reviewed & are unremarkable except as noted in HPI and below Constitutional: Constitutional: Reports no additional constitutional complaints Eyes: Eyes: Reports no additional eye complaints ENT: Reports system reviewed and no additional complaints, except as documented Cardiovascular: Cardiovascular: Reports no additional cardiovascular complaints Respiratory: Respiratory: Reports no additional respiratory complaints Gastrointestinal: Gastrointestinal: Reports as per HPI Musculoskeletal: Musculoskeletal: Reports no additional musculoskeletal complaints Integumentary/Breasts: Skin/Breast: Reports system reviewed and no additional complaints, except as docu Neurologic: Reports system reviewed and no additional complaints, except as documented Psychiatric: Psychiatric: Reports no additional psychiatric complaints [facility] Past Medical History Medical History (Updated 11/16/24 @ 12:57 by Edis Brand MD) BMI 25.0-25.9,adult H/O prostate cancer Atherosclerotic heart disease of [place] coronary artery with angina pectoris Chronic kidney disease, stage III (moderate) SURESH (dyspnea on exertion) Dyslipidemia Essential hypertension Hypothyroidism, unspecified Sleep disturbance Type 2 diabetes mellitus without complications Surgical History Surgical History History of appendectomy H/O hernia repair Family History Family History Mother Family history of transient ischemic attacks, Onset Age: 81 Family history of diabetes mellitus in first degree relative Patient's mother is Diabetes mellitus Cerebrovascular accident Sibling Family history of Parkinson's disease Patient's sister is in good health Father Family history of lung cancer Patient's father is Other Hypertension Social History Social History Smoking status: Former smoker Second hand tobacco smoke exposure: No Smoking end date: 08/01/1964 Alcohol intake: current Substance use: never Substance use type: does not use Do You Feel Safe in your Home?: Yes Lack of Transportation: No Lack of Food: Never True Current Housing: I Have Housing Concerned About Future Housing: No Difficulty Paying Gas/Electric Bills: No Difficulty Paying for Meds: No Currently Unemployed: No Education: High School Diploma/GED Difficulty w/ Childcare or Family Care: No Living arrangements: with family Occupation/Education: retired 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 HEAD: Normocephalic, atraumatic. EYES: PERRLA and EOMI. ENT: Nares clear, no rhinorrhea or epistaxis. Mucous membranes moist. NECK: Supple. CHEST: Clear to auscultation. No respiratory distress. HEART: Regular rate and rhythm. No murmur heard. Normal peripheral pulses. ABDOMEN: Soft, nontender, nondistended, normal active bowel sounds. No obvious hernia detected on physical exam EXTREMITIES: Normal range of motion. No edema. SKIN: Warm, dry, no rash. NEURO: No focal deficits. Alert and oriented x3. PSYCH: Normal mood and affect. Course Course Emergency Course: Patient resting well he is not in any pain at this time. Informed him about his lab work, CT findings. Advised to continue his home medication can take Tylenol for pain as needed Vital Signs Vital signs: Vital Signs Temperature 36.6 C 11/16/24 11:16 Pulse Rate 79 11/16/24 11:16 Respiratory Rate 18 11/16/24 11:16 Blood Pressure 148/83 H 11/16/24 11:16 Pulse Oximetry 97 11/16/24 11:16 Oxygen Delivery Room Air 11/16/24 11:16 Temperature 36.6 C 11/16/24 11:16 Pulse Rate 76 11/16/24 11:19 Respiratory Rate 19 11/16/24 11:19 Blood Pressure 148/83 H 11/16/24 11:19 Pulse Oximetry 97 11/16/24 11:19 Oxygen Delivery Room Air 11/16/24 11:16 MDM - Abdominal Pain Differential Diagnosis Differential diagnosis: Likely abdominal pain, constipation, diverticulitis and small bowel obstruction Medical Records Attestation: I reviewed the patient's medical records. Lab Data Attestation: I reviewed the patient's lab results. 11/16/24 11:35 11/16/24 11:35 Labs: Lab Results 11/16/24 Range/Units 11:35 WBC 11.1 H (4.5-10.0) K/mm3 RBC 4.34 L (4.6-6.20) M/mm3 Hgb 13.2 L (14.0-18.0) g/dL Hct 40.7 L (42.0-52.0) % MCV 93.8 (80-100) fl MCH 30.4 (26-34) pg MCHC 32.4 (32-36) g/dl RDW 14.3 (11.5-14.5) % Plt Count 269 (150-375) k/mm3 MPV 10.4 (7.4-10.4) fl Immature Gran % (Auto) 0.2 (0-0.5) % Neut % (Auto) 69.1 (45.5-73.1) % Lymph % (Auto) 20.8 (18.3-44.2) % [place] % (Auto) 8.2 (2.6-8.5) % Eos % (Auto) 1.2 (0-4.4) % Baso % (Auto) 0.5 (0.2-1.2) % Lymph # (Auto) 2.31 (0.9-3.2) K/mm3 [place] # (Auto) 0.9 H (0.1-0.6) K/mm3 Eos # (Auto) 0.1 (0-0.3) K/mm3 Baso # (Auto) 0.1 (0.0-0.1) K/mm3 Abs Immat Gran (auto) 0.02 (0.00-0.031) K/mm3 Absolute Neuts (auto) 7.7 H (1.3-6.7) K/mm3 Absolute Nucleated RBC 0.000 (0.0-0.012) K/mm3 Nucleated RBC % 0.0 (0.0-0.2) % Sodium 136 L (137-145) mmol/L Potassium 4.3 (3.4-5.0) mmol/L Chloride 96 L (98-107) mmol/L Carbon Dioxide 29 (22-30) mmol/L Anion Gap 11 (4-12) mmol/L BUN 22 H (9-20) mg/dL Creatinine 0.93 (0.7-1.3) mg/dL Estim Creat Clear Calc 53 ml/min Estimated GFR > 60 (59 - ) Glucose 143 H (65-110) mg/dL Calcium 9.7 (8.4-10.2) mg/dL Total Bilirubin 0.6 (0.2-1.3) mg/dL AST 20 (17-59) U/L ALT 17 (6-50) U/L Alkaline Phosphatase 57 (38-126) U/L Total Protein 8.0 (6.3-8.2) g/dL Albumin 4.5 (3.5-5.1) g/dL Lipase 66 (23-300) U/L Imaging Data Radiologist's impression: ITS Impressions Abdomen/Pelvis CT 11/16/24 12:12 IMPRESSION: No acute intra-abdominal pathology, as detailed above. Discharge Plan Discharge Clinical Impression: Abdominal pain Qualifiers: Abdominal location: periumbilical Qualified Code(s): R10.33 - Periumbilical pain Patient Disposition: Home Condition: Stable Instructions: Abdominal Pain (ED) Additional Instructions: continue homemedications, follow with your doctor as needed.can take Tylenol for pain as needed. Patient Language: Somali Prescriptions: No Action (DME) Contour Test Strips Strip See Rx Instructions .Route Qty: 100 3RF Rx Instructions: to test blood sugars 1xday (DME) lancets [Micro Thin Lancets] 33 gauge misc See Rx Instructions .ROUTE .MEDSUPPLY Qty: 100 3RF Rx Instructions: USE 1 STRIP TO TEST BLOOD GLUCOSE DAILY DRECTED lovastatin 40 mg tablet See Rx Instructions .ROUTE .COMPLEX Qty: 90 1RF Dose Instruction: TAKE 1 TABLET BY MOUTH EVERY DAY Rx Instructions: TAKE 1 TABLET BY MOUTH EVERY DAY metformin 500 mg tablet See Rx Instructions .ROUTE .COMPLEX Qty: 180 1RF Dose Instruction: TAKE 1 TABLET BY MOUTH TWICE DAILY Rx Instructions: TAKE 1 TABLET BY MOUTH TWICE DAILY escitalopram oxalate 10 mg tablet 10 mg PO DAILY Qty: 30 5RF levothyroxine 100 mcg tablet See Rx Instructions .ROUTE .COMPLEX Qty: 90 1RF Dose Instruction: TAKE 1 TABLET BY MOUTH EVERY DAY Rx Instructions: TAKE 1 TABLET BY MOUTH EVERY DAY tamsulosin 0.4 mg capsule See Rx Instructions .ROUTE .COMPLEX Qty: 90 1RF Dose Instruction: TAKE 1 CAPSULE BY MOUTH ONCE DAILY. Rx Instructions: TAKE 1 CAPSULE BY MOUTH ONCE DAILY. Follow-up/Referrals: David Ivey APRN [Primary Care Provider] - Time of Disposition: 12:57
== END 2024-11-16 13:32 | disposition home or self-care (01) ==
PROVIDERS: Emergency Provider Family Medicine; PCP Nurse Practitioner
DX: R10.33 Periumbilical pain (principal); I12.9 Hypertensive chronic kidney disease with stage 1 through stage 4 chronic kidney disease, or unspecified chronic kidney disease; E11.22 Type 2 diabetes mellitus with diabetic chronic kidney disease; N18.30 Chronic kidney disease, stage 3 unspecified; E03.9 Hypothyroidism, unspecified; E78.5 Hyperlipidemia, unspecified; Z85.46 Personal history of malignant neoplasm of prostate; Z87.891 Personal history of nicotine dependence; Z79.899 Other long term (current) drug therapy; Z79.84 Long term (current) use of oral hypoglycemic drugs
CPT/HCPCS: 36415; 74177; 80053; 83690; 85025; 99284; Q9967

== ENCOUNTER 2024-12-28 09:18 | Outpatient (CLI) | payer MEDICARE, SELFPAY ==
--- NOTE | ~2024-12-28 | XR_ITS ---
[id number] Ordering provider: David Ivey APRN History: . R20.0 - Anesthesia of skin . Comparison: None. FINDINGS: VERTEBRAL BODIES: Normal height and alignment. No visible fracture or subluxation. The dens is intact . Degenerative changes of the spine. DISK SPACES: C5-C6 and C6-C7. Multilevel uncovertebral joint osteoarthritic changes. PARASPINOUS SOFT TISSUES: No prevertebral soft tissue swelling. IMPRESSION: No acute osseous abnormality cervical spine. 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 Reviewed, dictated and finalized at location A.
--- OUTSIDE RECORDS SUMMARY | 2024-12-28 09:33 | XMS_ITS | Continuity of Care Document ---
Author Organization [facility] Address [address] [place] [address] Phone Care Team Providers Care Physicist Light And Optics Name Role Phone Dick Huerta MD Unavailable Unavailable Procedures Procedure Date Eye Exam, New Patient IOLMaster Advance Directives Directive Yes / No Effective Date File Name No Information Encounters Encounter Description Practice Location Reason(s) For Visit Diagnoses Date Provider Providers Copied on Encounter [facility], [address], [place], [place], [id number], [place] tel:[phone] [facility] No Information Bradley Jennings. [facility] [place], [place], [id number] , [place]. tel:[phone] Referring Provider: Junior Souza, [address], [place], [address]. tel:[phone] Family History Family Member Type Diagnosis Age At Onset No Information Payers Payer name Insurance type Covered libertarian ID Authoriza tion(s) Medicare [place] [id number] Social History Type Description Quantity Date Captured [...]
--- OUTSIDE RECORDS SUMMARY | 2024-12-28 09:33 | XMS_ITS | Clinical Summary ---
Author Organization [facility] Address [address] [place] [address] Care Team Providers Care Per Assessment Nurse Name Role Phone Unavailable Primary Care Provider Unavailabl e Source Comments [facility],non-owned Affiliates and Associated Physician Practices is amultiple site organization consisting of ambulatory clinics and hospital sitesin [place], [place], [place] and [place]. This disclosure is being madepursuant to the Care Everywhere program and may not contain all information available regarding this patient. 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
--- OUTSIDE RECORDS SUMMARY | 2024-12-28 09:33 | XMS_ITS | Encounter Summary ---
Author Organization [facility] Address [address] [place] [address] Care Team Providers Care Healthcare Administrative Assistant Name Role Phone Unavailable Primary Care Provider Unavailabl e Encounter Details Date Type Department Care Team (Late st Contact Info) Description 08/15/2020 Lab Requisition [facility] Pathology Lab [address] [place] [address] Francisco Valiente MD [address] [place] [address] Illness, unspecified Social History Tobacco Use Types Packs/Day Years Used Date Smoking Tobacco: Never Assessed Sex and Gender Information Value Date Recorded Sex Assigned at Not on file Legal Sex Male 11:09 AM PROCESS IMPROVEMENT MANAGER Gender Identity Not on file Sexual Orientation Not on file documented as of this encounter Plan of Treatment Not on file documented as of this encounter Procedures Procedure Name Priority Date/Time Associated Diagnosis Comments PATHOLOGY TISSUE Routine 08/13/2020 9:53 AM PROCESS IMPROVEMENT MANAGER Illness, unspecified documented in this encounter Results * PATHOLOGY TISSUE (08/13/2020 9:53 AM PROCESS IMPROVEMENT MANAGER) Case Report Surgical Pathology Report Case: [id number] Authorizing Provider: Francisco Valiente MD Collected: 08/13/2020 09:53 AM Ordering Location: [facility] Care Pathology Lab Received: 08/15/2020 08:09 AM Pathologist: Mainor Wilde MD Specimen: Lymph Node Biopsy 08/18/2020 2:06 PM PROCESS IMPROVEMENT MANAGER U PATHOLOGY LAB Final Diagnosis Left supraclavicular mass, ultrasound-guided core biopsy: - Scant fragments of fibrous tissue with polytypic plasma cells - See description 08/18/2020 2:06 PM PROCESS IMPROVEMENT MANAGER U PATHOLOGY LAB at 1406 PROCESS IMPROVEMENT MANAGER Microscopic Description and Comment H&E sections of [...] CD138: highlights focal clusters of plasma cells [place] and lambda LAURO: shows no evidence of a clonally restricted population CD20: highlights scattered B-cells CD3: highlights scattered T-cells 08/18/2020 2:06 PM [facility] PATHOLOGY LAB Clinical History The patient is an 85 year-old man with a 4 cm supraclavicular mass. 08/18/2020 2:06 PM [facility] PATHOLOGY LAB Materials Received Received are 6 slide(s) and 1 block labeled [id number] along with a copy of the outside pathology report. [place] [address] All original materials are returned to the referring institution, along with a copy of our final report. 08/18/2020 2:06 PM [facility] PATHOLOGY LAB Disclaimer The performance characteristics of all immunohistochemical and indirect immunofluorescence stains (if any) cited in this report were determined by the Histopathology Laboratory of [facility]. Some of these tests were developed [...] the attending (teaching) pathologist. 08/18/2020 2:06 PM [facility] PATHOLOGY LAB Embedded Images 08/18/2020 2:06 PM [facility] PATHOLOG[facility] LAB Pathology/Cytolo gy BIOPSY OF LYMPH NODE / Unknown 08/13/2020 9:53 AM PROCESS IMPROVEMENT MANAGER 08/15/2020 8:09 AM PROCESS IMPROVEMENT MANAGER us Francisco Valiente MD LAB - PATHOLOGY/CYTOLOGY ORDER CHARLES Final Result Performing Organization Address City/State/[facility] Co de Phone Number [facility] PATHOLOGY LAB [address] [phone] documented in this encounter Visit Diagnoses Diagnosis Illness, unspecified documented in this encounter
== END 2024-12-28 09:19 | disposition home or self-care (01) ==
PROVIDERS: PCP Nurse Practitioner; Visit Provider Nurse Practitioner
DX: M50.322 Other cervical disc degeneration at C5-C6 level (principal); M50.323 Other cervical disc degeneration at C6-C7 level
CPT/HCPCS: 72040

== ENCOUNTER 2025-01-22 09:29 | Outpatient (CLI) | payer MEDICARE, SELFPAY ==
--- NOTE | ~2025-01-22 | US_ITS ---
EXAMINATION: US carotid duplex BI DATE: 01/22/2025 15:31 CDT INDICATION: Dermal anesthesia TECHNIQUE: Grayscale, color Doppler, and pulsed Doppler images of the cervical carotid arteries were obtained. The degree of vessel stenosis is placed in one of the following categories: normal, <50%, 50-69%, >=7 0% but less than near-occlusion, near-occlusion, or total occlusion. Note that percent stenosis relative to normal distal artery lumen diameter is indirectly measured fro m velocity measurements as described originally by Chau, et al. Radiology 2003; 229:340-346 and upda willa by Vance Hanks et al STROKE 2012;43(3);915-921. COMPARISON: None. FINDINGS: There is mild atherosclerosis of both carotid arteries. Peak systolic velocity (in cm/s) is detailed below RIGHT: Right common carotid artery (CCA): 86 cm/s. Right internal carotid artery (ICA) PSV: 80 cm/s. Right ICA end-diastolic velocity (EDV): 16 cm/s. Right ICA/CCA PSV ratio is 0.9. Right external carotid artery (ECA): 109cm/s. There is antegrade flow in the right vertebral artery LEFT: Left common carotid artery (CCA): 102 cm/s. Left internal carotid artery (ICA) PSV: 75 cm/s. Left ICA end-diastolic velocity (EDV): 13 cm/s. Left ICA/CCA PSV ratio is 0.7. Left external carotid artery (ECA): 81cm/s. There is antegrade flow in the left vertebral artery. IMPRESSION: 1. Less than 50% stenosis in the right internal carotid artery. 2. Less than 50% stenosis in the left internal carotid artery. Reviewed, dictated and finalized at location A.
== END 2025-01-22 09:30 | disposition home or self-care (01) ==
PROVIDERS: PCP Nurse Practitioner; Visit Provider Nurse Practitioner
DX: I65.23 Occlusion and stenosis of bilateral carotid arteries (principal); R20.0 Anesthesia of skin
CPT/HCPCS: 93880

== ENCOUNTER 2025-05-07 09:28 | Outpatient (CLI) | payer MEDICARE, SELFPAY ==
--- OUTSIDE RECORDS SUMMARY | 2010-06-12 04:30 | XMS_ITS | Continuity of Care Document ---
Author Organization [facility] Address [address] [place] [address] Phone Care Team Providers Care Vat Packer Name Role Phone Dick Huerta MD Unavailable Unavailable Procedures Procedure Date Eye Exam, New Patient IOLMaster Advance Directives Directive Yes / No Effective Date File Name No Information Encounters Encounter Description Practice Location Reason(s) For Visit Diagnoses Date Provider Providers Copied on Encounter [facility], [address], [place], [place], [id number], [place] tel:[phone] [facility] No Information Bradley Jennings. [facility] [place], [place], [id number] , [place]. tel:[phone] Referring Provider: Junior Souza, [address], [place], [address]. tel:[phone] Family History Family Member Type Diagnosis Age At Onset No Information Payers Payer name Insurance type Covered libertarian ID Authoriza tion(s) [place] [id number] Social History Type Description Quantity Date Captured Comments Sex Male Smoking Status No Information Chief Complaint And Reason For Visit No Information Reason For Referral Reason For Referral No Information History Of Present Illness Encounter Date Complaint History Of Prese nt Illness No Information Functional Status Date Functional Assessmen t No Information Instructions Date Instruction Additional Infor mation No Information Assessments Type Assessment Date No Information Patient Care Teams Name Effective Dates (start - stop) Status Members No Information
--- OUTSIDE RECORDS SUMMARY | 2025-05-07 10:02 | XMS_ITS | Encounter Summary ---
Author Organization [facility] Address [address] [place] [address] Care Team Providers Care Fitness Services Manager Name Role Phone Unavailable Primary Care Provider Unavailabl e Encounter Details Date Type Department Care Team (Late st Contact Info) Description 08/15/2020 Lab Requisition [facility] Pathology Lab [address] [place] [address] Francisco Valiente MD [address] [place] [address] Illness, unspecified Social History Tobacco Use Types Packs/Day Years Used Date Smoking Tobacco: Never Assessed Sex and Gender Information Value Date Recorded Sex Assigned at Not on file Legal Sex Male 11:09 AM POULTRY SERVICE TECHNICIAN Gender Identity Not on file Sexual Orientation Not on file documented as of this encounter Plan of Treatment Not on file documented as of this encounter Procedures Procedure Name Priority Date/Time Associated Diagnosis Comments PATHOLOGY TISSUE Routine 08/13/2020 9:53 AM POULTRY SERVICE TECHNICIAN Illness, unspecified documented in this encounter Results * PATHOLOGY TISSUE (08/13/2020 9:53 AM POULTRY SERVICE TECHNICIAN) Case Report Surgical Pathology Report Case: [id number] Authorizing Provider: Francisco Valiente MD Collected: 08/13/2020 09:53 AM Ordering Location: [facility] Care Pathology Lab Received: 08/15/2020 08:09 AM Pathologist: Mainor Wilde MD Specimen: Lymph Node Biopsy 08/18/2020 2:06 PM POULTRY SERVICE TECHNICIAN U PATHOLOGY LAB Final Diagnosis Left supraclavicular mass, ultrasound-guided core biopsy: - Scant fragments of fibrous tissue with polytypic plasma cells - See description 08/18/2020 2:06 PM POULTRY SERVICE TECHNICIAN U PATHOLOGY LAB at 1406 POULTRY SERVICE TECHNICIAN Microscopic Description and Comment H&E sections of [...] CD138: highlights focal clusters of plasma cells [place] and lambda LAURO: shows no evidence of a clonally restricted population CD20: highlights scattered B-cells CD3: highlights scattered T-cells 08/18/2020 2:06 PM [facility] PATHOLOGY LAB Clinical History The patient is an 85 year-old man with a 4 cm supraclavicular mass. 08/18/2020 2:06 PM [facility] PATHOLOGY LAB Materials Received Received are 6 slide(s) and 1 block labeled [id number] along with a copy of the outside pathology report. [place] [address] All original materials are returned to the referring institution, along with a copy of our final report. 08/18/2020 2:06 PM [facility] PATHOLOGY LAB Disclaimer The performance characteristics of all immunohistochemical and indirect immunofluorescence stains (if any) cited in this report were determined by the Histopathology Laboratory of [facility]. Some of these tests were developed [...] the attending (teaching) pathologist. 08/18/2020 2:06 PM [facility] PATHOLOGY LAB Embedded Images 08/18/2020 2:06 PM [facility] PATHOLOGY LAB Pathology/Cytolo gy BIOPSY OF LYMPH NODE / Unknown 08/13/2020 9:53 AM POULTRY SERVICE TECHNICIAN 08/15/2020 8:09 AM POULTRY SERVICE TECHNICIAN us Francisco Valiente MD LAB - PATHOLOGY/CYTOLOGY ORDER CHARLES Final Result Performing Organization Address City/State/[facility] Co de Phone Number [facility] PATHOLOGY LAB [address] [phone] documented in this encounter Visit Diagnoses Diagnosis Illness, unspecified documented in this encounter
--- OUTSIDE RECORDS SUMMARY | 2025-05-07 10:02 | XMS_ITS | Clinical Summary ---
Author Organization [facility] Address [address] [place] [address] Care Team Providers Care Binitrotoluene Operator Name Role Phone Unavailable Primary Care Provider Unavailabl e Source Comments [facility],non-owned Affiliates and Associated Physician Practices is amultiple site organization consisting of ambulatory clinics and hospital sitesin [place], [place], [place] and [place]. This disclosure is being madepursuant to the Care Everywhere program and may not contain all information available regarding this patient. Last updated 18.[facility] Social History Tobacco Use Types Packs/Day Years Used Date Smoking Tobacco: Never Assessed Sex and Gender Information Value Date Recorded Sex Assigned at Not on file Legal Sex Male 11:09 AM LIME BURNER Gender Identity Not on file Sexual Orientation Not on file Plan of Treatment Health Maintenance Due Date Last Done Comments DTAP/TDAP/TD VACCINES (1 - Tdap) 1955 PNEUMOCOCCAL VACCINE 50+ (1 of 1 - PCV) 1986 ZOSTER VACCINE (1 of 2) 1986 Respiratory Syncytial Virus (RSV) Vaccine Pt: or over 60 yrs (1 - 1-dose 75+ series) 2011 DEPRESSION SCREENING 08/01/2024 COVID-19 VACCINE ( - 2023-2 5 season) 2025 INFLUENZA VACCINE (#1) 2025 HEPATITIS B VACCINE Aged Out No [...] age to complete this topic Insurance MEDICARE [facility]
[2025-05-07 10:35] LABS: Alanine Aminotransferase 14 U/L (6-50); Albumin Level 4.1 g/dL (3.5-5.1); Alkaline Phosphatase 70 U/L (38-126); Anion Gap 6 mmol/L (4-12); Aspartate Amino Transferase 25 U/L (17-59); Bilirubin,Total 1.0 mg/dL (0.2-1.3); Blood Urea Nitrogen 28 mg/dL (9-20); Calcium 9.0 mg/dL (8.4-10.2); Carbon Dioxide 29 mmol/L (22-30); Chloride 103 mmol/L (98-107); Cholesterol 130 mg/dL (0-200); Estimated Glomerular Filt Rate > 60; Glucose 113 mg/dL (65-110); HDL Direct 37 mg/dL; Potassium 4.6 mmol/L (3.4-5.0); Sodium 138 mmol/L (137-145); Total Protein 7.5 g/dL (6.3-8.2); Triglycerides 96 mg/dL (<150)
[2025-05-07 10:47] LABS: Hemoglobin A1C 6.2 % (<5.7)
[2025-05-07 11:11] LABS: Thyroid Stimulating Hormone 0.299 uIU/mL (0.465-4.680)
== END 2025-05-07 09:29 | disposition home or self-care (01) ==
PROVIDERS: PCP Nurse Practitioner; Visit Provider Nurse Practitioner
DX: E78.5 Hyperlipidemia, unspecified (principal); E03.9 Hypothyroidism, unspecified; E11.9 Type 2 diabetes mellitus without complications
CPT/HCPCS: 36415; 80053; 80061; 83036; 84443

== ENCOUNTER 2025-07-06 11:13 | Outpatient (CLI) | payer MEDICARE, SELFPAY ==
--- OUTSIDE RECORDS SUMMARY | 2025-07-06 11:17 | XMS_ITS | Clinical Summary ---
Author Organization [facility] Address [address] [place] [address] Care Team Providers Care Heavy Truck Driver Name Role Phone Unavailable Primary Care Provider Unavailabl e Source Comments [facility],non-owned Affiliates and Associated Physician Practices is amultiple site organization consisting of ambulatory clinics and hospital sitesin [place], [place], [place] and [place]. This disclosure is being madepursuant to the Care Everywhere program and may not contain all information available regarding this patient. Last updated 18.[facility] Social History Tobacco Use Types Packs/Day Years Used Date Smoking Tobacco: Never Assessed Sex and Gender Information Value Date Recorded Sex Assigned at Not on file Legal Sex Male 11:09 AM GRADES 1 THROUGH 6 TEACHER Gender Identity Not on file Sexual Orientation Not on file Plan of Treatment Health Maintenance Due Date Last Done Comments DTAP/TDAP/TD VACCINES (1 - Tdap) 1955 PNEUMOCOCCAL VACCINE 50+ (1 of 1 - PCV) 1986 ZOSTER VACCINE (1 of 2) 1986 Respiratory Syncytial Virus (RSV) Vaccine Pt: or over 60 yrs (1 - 1-dose 75+ series) 2011 DEPRESSION SCREENING 08/01/2024 COVID-19 VACCINE (1 - 2024-2 6 season) 2025 INFLUENZA VACCINE (#1) 2025 HEPATITIS [...] age to complete this topic Insurance MEDICARE [employer]ARE [employer]AGE
--- OUTSIDE RECORDS SUMMARY | 2025-07-06 11:17 | XMS_ITS | Encounter Summary ---
Author Organization [facility] Address [address] [place] [address] Care Team Providers Care Lab Animal Technologist Name Role Phone Unavailable Primary Care Provider Unavailabl e Encounter Details Date Type Department Care Team (Late st Contact Info) Description 08/15/2020 Lab Requisition [facility] Pathology Lab [address] [place] [address] Francisco Valiente MD [address] [place] [address] Illness, unspecified Social History Tobacco Use Types Packs/Day Years Used Date Smoking Tobacco: Never Assessed Sex and Gender Information Value Date Recorded Sex Assigned at Not on file Legal Sex Male 11:09 AM SKIN CARE SPECIALIST Gender Identity Not on file Sexual Orientation Not on file documented as of this encounter Plan of Treatment Not on file documented as of this encounter Procedures Procedure Name Priority Date/Time Associated Diagnosis Comments PATHOLOGY TISSUE Routine 08/13/2020 9:53 AM SKIN CARE SPECIALIST Illness, unspecified documented in this encounter Results * PATHOLOGY TISSUE (08/13/2020 9:53 AM SKIN CARE SPECIALIST) Case Report Surgical Pathology Report Case: [id number] Authorizing Provider: Francisco Valiente MD Collected: 08/13/2020 09:53 AM Ordering Location: [facility] Care Pathology Lab Received: 08/15/2020 08:09 AM Pathologist: Mainor Wilde MD Specimen: Lymph Node Biopsy 08/18/2020 2:06 PM SKIN CARE SPECIALIST U PATHOLOGY LAB Final Diagnosis Left supraclavicular mass, ultrasound-guided core biopsy: - Scant fragments of fibrous tissue with polytypic plasma cells - See description 08/18/2020 2:06 PM SKIN CARE SPECIALIST U PATHOLOGY LAB at 1406 SKIN CARE SPECIALIST Microscopic Description and Comment H&E sections of [...] highlights focal clusters of plasma cells [place] and lambda LAURO: shows no evidence of a clonally restricted population CD20: highlights scattered B-cells CD3: highlights scattered T-cells 08/18/2020 2:06 PM [facility] PATHOLOGY LAB Clinical History The patient is an 85 year-old man with a 4 cm supraclavicular mass. 08/18/2020 2:06 PM [facility] PATHOLOGY LAB Materials Received Received are 6 slide(s) and 1 block labeled [id number] along with a copy of the outside pathology report. [place] [address] All original materials are returned to the referring institution, along with a copy of our final report. 08/18/2020 2:06 PM [facility] PATH[facility] LAB Disclaimer The performance characteristics of all immunohistochemical and indirect immunofluorescence stains (if any) cited in this report were determined by the Histopathology Laboratory of [facility]. Some of these tests were [...] the attending (teaching) pathologist. 08/18/2020 2:06 PM [facility] PATHOLOG[facility] LAB Embedded Images 08/18/2020 2:06 PM [facility] PATHOLOG[facility] LAB Pathology/Cytolo gy BIOPSY OF LYMPH NODE / Unknown 08/13/2020 9:53 AM SKIN CARE SPECIALIST 08/15/2020 8:09 AM SKIN CARE SPECIALIST us Francisco Valiente MD LAB - PATHOLOGY/CYTOLOGY ORDER CHARLES Final Result Performing Organization Address City/State/[facility] Co de Phone Number [facility] PATHOLOGY LAB [address] [phone] documented in this encounter Visit Diagnoses Diagnosis Illness, unspecified documented in this encounter
[2025-07-06 12:34] LABS: Free T4 Free Thyroxine 1.15 ng/dL (0.78-2.19)
[2025-07-06 12:38] LABS: Thyroid Stimulating Hormone 2.550 uIU/mL (0.465-4.680)
== END 2025-07-06 11:14 | disposition home or self-care (01) ==
PROVIDERS: PCP Nurse Practitioner; Visit Provider Nurse Practitioner
DX: E03.9 Hypothyroidism, unspecified (principal)
CPT/HCPCS: 36415; 84439; 84443